=== PATIENT | female | born 1935 | race Caucasian/White ===

== ENCOUNTER 2016-11-11 12:53 | Day surgery (SDC) | payer MEDICARE, OTHER ==
--- OUTSIDE RECORDS SUMMARY | 2016-11-11 12:57 | XMS REPORT | Continuity of Care Document ---
:1935 Author Organization [facility] ([facility]) Address [address] [place] [address] Phone [phone] Care Team Providers Name Role Phone Bk Asher Primary Care Provider [phone] Source Comments This disclosure is being made pursuant to the Care Everywhere program, applicable federal and state laws, and may not contain all informaitonavailable regarding this patient.[facility] ([facility]) Active Allergies and Adverse Reactions Allergen Noted Date Severity Reactions Comments Oxycodone-Acetaminophen 01/22/2016 Nausea & Vomiting Current Medications Prescription Sig. Disp. Refills Start Date End Date Status amLODIPine 5 mg tablet Take 5 mg by Active mouth daily. omeprazole 20 mg enteric Take 20 mg by Active coated capsule mouth daily. PARoxetine 10 mg tablet Take 10 mg by Active mouth daily. polyethylene glycol 3350 Take 17 g by Active (MIRALAX) 17 gram/dose powder mouth daily. warfarin 5 mg tablet Take 5 mg by Active mouth daily. hydrochlorothiazide 12.5 mg Take 12.5 mg by Active tablet mouth daily. metoPROLol tartrate 100 mg Take 100 mg by Active tablet mouth 2 times daily. 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 Pulse 72 05/27/2016 2:31 PM ENGINEERING ADMINISTRATOR Temperature - - Respiratory Rate - - Height 1.626 m (5' 4.02") 01/22/2016 12:36 PM CDT Weight 77.111 kg (170 lb) 05/27/2016 2:31 PM ENGINEERING ADMINISTRATOR Body Mass Index 29.17 05/27/2016 2:31 PM ENGINEERING ADMINISTRATOR Oxygen Saturation - - Plan of Care Date Type Specialty Providers Description 11/25/2016 Appointment [facility], Chief Comp: Patient MD Reported Reason For [address] [place] [address] [phone] (Fax) Health Maintenance Due Date Last Done Comments Hepatitis B Vaccine (1 of 3 - Primary Series) 1935 Tdap Vaccine 1946 Lipid Disorder Screening 1953 Td Vaccine 1953 Colonoscopy 04/23/1985 Zoster Vaccine 1995 Osteoporosis Screening (DXA Bone Density) 2000 Pneumococcal Vaccine (1 of 2 - PCV13) 2000 Influenza Vaccine: Seasonal (#1) 01/20/2016 Results from Last 3 Months Not on file
--- NOTE | 2016-11-11 15:10 | OR ---
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 Above-mentioned procedures indicated to ensure no bladder pathology and assess urethra. Description: Consent obtained. Placed in the dorsal lithotomy position. Prepped and draped. Time-out taken . Scope inserted into the urethra and navigated to the bladder with ease. No obvious tumors or stones. 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 Does not look like TCC but. Washing was obtained overlying the more suspicious lesion sent for cytology and culture. No real trabeculation Ureters normal in number and position On retroflexion fairly normal bladder neck Normal urethra with the exception of hyperplastic polyps which are benign. 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 Some atrophic change. No masses. 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 Washing obtained over these areas which is important. Also sent for culture. 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 FOLLOW UP: 2 weeks in the office for catheterized residual/UA. She is being treated with Bactrim double strength for 7 days followed by prophylaxis. Last voided culture was Escherichia coli with susceptibility to this agent.
[2016-11-11] MEDS ORDERED: SULFAMETHOXAZOLE/TRIMETHOPRIM 1 TAB TABLET PO PRN (15:18)
[2016-11-11 19:34] VITALS: BP 138/86
== END 2016-11-11 12:54 | disposition home or self-care (01) ==
LOC: AMB 12:53
PROVIDERS: ATTEND Urology
PROC: 3E1K88X Irrigation of Genitourinary Tract using Irrigating Substance, Via Natural or Artificial Opening Endoscopic, Diagnostic (ICD-10-PCS; 2016-11-11)
PROC: 0TJB8ZZ Inspection of Bladder, Via Natural or Artificial Opening Endoscopic (ICD-10-PCS; principal; 2016-11-11 15:35)
DX: R31.29 Other microscopic hematuria (principal); N36.2 Urethral caruncle; R30.0 Dysuria; E66.9 Obesity, unspecified; Z68.28 Body mass index [BMI] 28.0-28.9, adult